=== PATIENT | female | born 1940 | race Caucasian/White ===

== ENCOUNTER 2017-06-30 07:29 | Day surgery (SDC) | payer MEDICARE, OTHER ==
[~2017-06-30 07:29] MED LIST: SOD CHLORIDE 0.45% 1,000 ML IV
[2017-06-30] MEDS ORDERED: DIAZEPAM 5 MG TAB PO (08:00)
[2017-06-30] MEDS ORDERED: FAMOTIDINE 20 MG TAB PO (08:00)
[2017-06-30] MEDS ORDERED: DIPHENHYDRAMINE 50 MG CAP PO (08:00)
[2017-06-30 08:04] LABS: ADD MAN DIFF? NO
[2017-06-30 08:11] LABS: BASOPHILS % 0.5 % (0.0-2.0); EOSINOPHILS # 0.2 10^3/ul (0.0-0.5); EOSINOPHILS % 2.4 % (0.0-7.0); HEMOGLOBIN 13.3 g/dl (12.0-16.0); LYMPHOCYTES % 30.9 % (15.0-51.0); MEAN CORPUSCULAR HEMOGLOBIN 29.6 pg (29.0-33.0); MEAN CORPUSCULAR HGB CONC 32.4 g/dl (32.0-37.0); MEAN CORPUSCULAR VOLUME 91.1 fl (82.0-101.0); MEAN PLATELET VOLUME 11.5 fl (7.4-10.4); MONOCYTE # 0.6 10^3/ul (0.3-0.9); MONOCYTES % 9.9 % (0.0-11.0); NEUTROPHIL # 3.6 10^3/ul (1.6-7.5); NEUTROPHILS % 56.1 % (39.0-77.0); PLATELET COUNT 190 10^3/UL (140-415); RED CELL DISTRIBUTION WIDTH 13.8 % (11.5-14.5)
[2017-06-30 08:11] LABS: WHITE BLOOD COUNT 6.4 10^3/ul (4.8-10.8)
[2017-06-30 08:30] LABS: ANION GAP 13 (8-16); CARBON DIOXIDE 29 mmol/L (21-31); CHLORIDE 106 mmol/L (97-110); CHOL/HDL RATIO 5.1 RATIO; CHOLESTEROL 197 mg/dl (100-200); GLUCOSE 93 mg/dl (70-220); HDL CHOLESTEROL 38 mg/dl (33-92); TRIGLYCERIDES 133 mg/dl (0-149)
[2017-06-30 08:31] LABS: LDL CHOLESTEROL,CALCULATED 132 mg/dl
[2017-06-30 08:38] LABS: BLOOD UREA NITROGEN 11 mg/dl (7-20); CALCIUM 9.6 mg/dl (8.4-10.2); CREATININE 0.62 mg/dl (0.44-1.00); POTASSIUM 3.9 mmol/L (3.5-5.1); SODIUM 144 mmol/L (135-144)
[2017-06-30 08:45] LABS: INR 0.95; PROTIME 12.8 Sec (11.9-14.9)
[2017-06-30 08:46] LABS: PARTIAL THROMBOPLASTIN TIME 31.5 Sec (25.0-35.0)
[2017-06-30] MEDS ORDERED: VERAPAMIL 5 MG INJ (08:57)
[2017-06-30] MEDS ORDERED: IODIXANOL LOCM 100 ML BTL (08:57)
[2017-06-30] MEDS ORDERED: HEPARIN 1000 UNITS/ML 10 ML INJ (08:57)
[2017-06-30] MEDS ORDERED: LIDOCAINE 1% (MDV) 20 ML INJ (08:57)
[2017-06-30] MEDS ORDERED: NITROGLYCERIN (IC) 100 MCG/ML INJ (08:58)
[2017-06-30] MEDS ORDERED: FENTAnyl 50 MCG/ML VIAL (09:30)
[2017-06-30] MEDS ORDERED: MIDAZOLAM 1 MG/ML 2 ML INJ (09:30)
[2017-06-30] MEDS ORDERED: morphine 2 MG INJ IV (11:00)
[2017-06-30] MEDS ORDERED: ACETAMINOPHEN 325 MG TAB PO (11:00)
[2017-06-30] MEDS ORDERED: AL HYDROX/MG HYDROX/SIMETH 30 ML CUP PO (11:00)
[2017-06-30] MEDS ORDERED: ONDANSETRON 4 MG INJ IV (11:00)
[2017-06-30] MEDS: SOD CHLORIDE 0.9% 1,000 ML IV (11:08)
== END 2017-06-30 14:15 | disposition home or self-care (01) ==
LOC: SDS 07:29
DX: I25.10 Atherosclerotic heart disease of native coronary artery without angina pectoris (principal); I10 Essential (primary) hypertension; E78.5 Hyperlipidemia, unspecified; E11.9 Type 2 diabetes mellitus without complications
CPT/HCPCS: 71045; 80048; 80061; 82962; 85025; 85610; 85730; 93005; 93458

== ENCOUNTER 2018-04-17 10:31 | Emergency (ER) | payer MEDICARE, OTHER ==
[2018-04-17] MEDS: ACETAMINOPHEN 500 MG TAB PO (12:14)
[2018-04-17] MEDS: PROMETHAZINE/DM (CUP) PO (12:19)
[2018-04-17] MEDS: BENZONATATE 100 MG CAP PO (12:25)
== END 2018-04-17 13:15 | disposition home or self-care (01) ==
LOC: FTE 10:31
DX: J20.9 Acute bronchitis, unspecified (principal); I10 Essential (primary) hypertension; I25.10 Atherosclerotic heart disease of native coronary artery without angina pectoris; E11.9 Type 2 diabetes mellitus without complications; Z79.82 Long term (current) use of aspirin; Z79.84 Long term (current) use of oral hypoglycemic drugs
CPT/HCPCS: 71046; 99283-25

== ENCOUNTER 2018-06-04 19:21 | Emergency (ER) | payer MEDICARE, OTHER | END 2018-06-05 00:14 | disposition home or self-care (01) | LOC: FTE 06-05 00:14 | DX: S92.351A Displaced fracture of fifth metatarsal bone, right foot, initial encounter for closed fracture (principal); I10 Essential (primary) hypertension; E11.9 Type 2 diabetes mellitus without complications; I25.10 Atherosclerotic heart disease of native coronary artery without angina pectoris; X50.1XXA Overexertion from prolonged static or awkward postures, initial encounter; Y92.9 Unspecified place or not applicable; Z79.82 Long term (current) use of aspirin; Z79.84 Long term (current) use of oral hypoglycemic drugs | CPT/HCPCS: 73630; 99283-25 ==

== ENCOUNTER 2018-07-09 11:27 | Emergency (ER) | payer MEDICARE, OTHER ==
[2018-07-09] MEDS: KETOROLAC 15 MG INJ IM (12:21)
[2018-07-09] MEDS: DEXAMETHASONE 10 MG/ML 1 ML INJ IM (12:21)
== END 2018-07-09 13:30 | disposition home or self-care (01) ==
LOC: FTE 11:27
DX: M25.551 Pain in right hip (principal); I10 Essential (primary) hypertension; I25.10 Atherosclerotic heart disease of native coronary artery without angina pectoris
CPT/HCPCS: 73510; 96372; 99284-25

== ENCOUNTER 2018-10-05 12:01 | Emergency (ER) | payer MEDICARE, OTHER ==
[2018-10-05 13:39] LABS: ADD MAN DIFF? NO
[2018-10-05 13:42] LABS: BASOPHILS % 0.3 % (0.0-2.0); EOSINOPHILS # 0.2 10^3/ul (0.0-0.5); EOSINOPHILS % 2.2 % (0.0-7.0); HEMATOCRIT 37.7 % (37.0-47.0); HEMOGLOBIN 11.8 g/dl (12.0-16.0); LYMPHOCYTES # 1.5 10^3/ul (0.8-2.9); LYMPHOCYTES % 21.7 % (15.0-51.0); MEAN CORPUSCULAR HEMOGLOBIN 28.4 pg (29.0-33.0); MEAN CORPUSCULAR HGB CONC 31.3 g/dl (32.0-37.0); MEAN CORPUSCULAR VOLUME 90.6 fl (82.0-101.0); MEAN PLATELET VOLUME 11.1 fl (7.4-10.4); MONOCYTE # 0.7 10^3/ul (0.3-0.9); MONOCYTES % 10.4 % (0.0-11.0); NEUTROPHIL # 4.4 10^3/ul (1.6-7.5); NEUTROPHILS % 65.1 % (39.0-77.0); PLATELET COUNT 182 10^3/UL (140-415); RED BLOOD COUNT 4.16 10^6/ul (4.20-5.40); RED CELL DISTRIBUTION WIDTH 14.7 % (11.5-14.5)
[2018-10-05 13:42] LABS: WHITE BLOOD COUNT 6.7 10^3/ul (4.8-10.8)
[2018-10-05 13:53] LABS: ADD UMIC YES; UR ASCORBIC ACID 40 mg/dL (NEGATIVE); UR BILIRUBIN (Dip) 1+ mg/dL (NEGATIVE); UR BLOOD (Dip) NEGATIVE (NEGATIVE); UR CLARITY SLIGHTLY CLOUDY (CLEAR); UR COLOR AMBER (YELLOW); UR GLUCOSE (Dip) NEGATIVE (NEGATIVE); UR KETONES (Dip) TRACE mg/dL (NEGATIVE); UR LEUKOCYTE ESTERASE (Dip) NEGATIVE Leu/ul (NEGATIVE); UR MUCUS MANY /HPF (NONE SEEN); UR NITRITE (Dip) NEGATIVE (NEGATIVE); UR RBC 3 /HPF (0-5); UR SPECIFIC GRAVITY (Dip) 1.027 (1.003-1.030); UR SQUAMOUS EPITHELIAL CELL FEW /HPF (FEW); UR TOTAL PROTEIN (Dip) 1+ mg/dl (NEGATIVE); UR UROBILINOGEN (Dip) 2+ mg/dL (NEGATIVE); UR WBC 2 /HPF (0-5)
[2018-10-05 14:02] LABS: ANION GAP 5 (5-13); BLOOD UREA NITROGEN 13 mg/dl (7-20); CALCIUM 9.5 mg/dl (8.4-10.2); CARBON DIOXIDE 28 mmol/L (21-31); CHLORIDE 105 mmol/L (97-110); CREATININE 0.68 mg/dl (0.44-1.00); GLUCOSE 101 mg/dl (70-220); POTASSIUM 3.8 mmol/L (3.5-5.1); SODIUM 138 mmol/L (135-144)
[2018-10-05 14:13] LABS: TROPONIN-I < 0.012 ng/ml (0.000-0.120)
[2018-10-05] MEDS: ALBUTEROL 0.083% (NEB) 2.5 MG/3 ML AMP HHN (15:38)
[2018-10-05 16:51] LABS: TROPONIN-I < 0.012 ng/ml (0.000-0.120)
== END 2018-10-05 17:14 | disposition home or self-care (01) ==
LOC: FTE 17:14
DX: B34.9 Viral infection, unspecified (principal); F41.9 Anxiety disorder, unspecified; I10 Essential (primary) hypertension; I25.10 Atherosclerotic heart disease of native coronary artery without angina pectoris; E11.9 Type 2 diabetes mellitus without complications; Z79.82 Long term (current) use of aspirin; Z79.84 Long term (current) use of oral hypoglycemic drugs
CPT/HCPCS: 36415; 71045; 80048; 81001; 84484; 85025; 93005; 94640; 99285-25